=== PATIENT | female | born 1940 | race Caucasian/White ===

== ENCOUNTER → 2018-02-13 14:30 | Outpatient (CLI) | payer MEDICARE, OTHER, SELFPAY ==
[2018-02-13 17:37] LABS: Color, Urine Yellow (Yellow); Glucose, Dipstick Normal (Normal); Ketone-Dipstick Negative (Negative); Leukocyte Esterase-Dipstick 100 /ul (Negative); Nitrite-Dipstick Negative (Negative); Occult Blood-Urine 10 /ul (Negative); Protein-Dipstick 30 mg/dl (Negative); Urine Bilirubin Dipstick Negative (Negative); Urine Clarity Clear (Clear); Urine Urobilinogen Normal (Normal)
[2018-02-13 17:52] LABS: Protein, Urine (Random) 31.6 mg/dL (<11.9); Protein:Creat Ratio 293 mg/g CRE (0-200)
[2018-02-13 17:56] LABS: Absolute Neutrophil Count 3.4 X10^3/uL (2.0-7.7); Basophil# 0.02 X10^3/uL; Basophil% 0.4 % (0-1); Eosinophil# 0.12 X10^3/uL; Eosinophils% 2.4 % (0-5); Hemoglobin 13.3 g/dl (12.0-15.0); Lymphocyte % 21.7 % (19-41); Mean Corp Hgb Conc 33.3 g/gl (32-36); Mean Corpuscular Hgb 27.5 pg (27.0-32.0); Mean Corpuscular Volume 82.6 fL (81-99); Mean Platelet Vol. 10.6 fl (6.2-12.0); Monocyte% 7.9 % (0-10); Neutrophil # 3.41 X10^3/uL (2.7-7.7); Neutrophil % 67.4 % (47-70); Platelet Count 281 K/mm3 (150-450); RBC Distribution Width CV 14.5 % (11.6-14.6); RBC Distribution Width SD 43.5 fl (35.1-43.9); Red Blood Count 4.84 M/mm3 (4.2-5.4); White Blood Count 5.1 K/mm3 (4.4-11.0)
[2018-02-13 17:57] LABS: POSITIVE COUNT NO; POSITIVE DIFFERENTIAL NO; POSITIVE MORPHOLOGY NO
[2018-02-13 18:10] LABS: ALB/GLOB Ratio 0.9 RATIO (0.9-2.4); AST(SGOT) 18 U/L (15-37); Alanine Aminotransfer ALT/SGPT 21 U/L (13-56); Alkaline Phosphatase 111 U/L (45-117); Anion Gap 14 (5-15); BUN 21 mg/dL (7-18); BUN/Creat Ratio 19.4 RATIO (10-20); Calcium,Total 11.3 mg/dL (8.5-10.1); Chloride 106 mmol/L (98-107); Creatinine, Serum 1.08 mg/dL (0.55-1.02); EST Glomerular Filtration Rate 52 mL/min (>60); Est Glom Filt Rate - Afr Amer 63 mL/min (>60); Globulin 4.4 g/dL (2.2-4.2); Glucose 146 mg/dL (74-106); Potassium 3.6 mmol/L (3.5-5.1); Protein, Total 8.4 g/dL (6.4-8.2); Sodium Level 142 mmol/L (136-145)
[2018-02-15 14:07] LABS: Anti-Centromere B Ab <0.2 AI (0.0-0.9); Anti-Jo <0.2 AI (0.0-0.9); Anti-Scleroderma-70 AB <0.2 AI (0.0-0.9); RNP Ab <0.2 AI (0.0-0.9); SJOGREN'S Anti-SS-A test < 0.2 AI (0.0-0.9); SJOGREN'S Anti-SS-B test < 0.2 AI (0.0-0.9); Smith Ab <0.2 AI (0.0-0.9)
[2018-02-16 11:44] LABS: ANTINUCLEAR ANTIBODIES DIRECT Negative (Negative); Anti-dsDNA Ab 2 IU/mL (0-9)
[2018-02-20 20:07] LABS: Complement C3 178 mg/dL (82-167)
[2018-02-21 11:32] LABS: CCP IgG Antibodies > 250 units (0-19); HEPATITIS B SURFACE AG Negative (Negative); HLA B27 Negative (.); Hep B Surface Antibodies Non Reactive (.); Hep C Antibodies <0.1 s/co ratio (0.0-0.9)
== END ==
PROVIDERS: Family Provider Internal Medicine Infectious Disease; PCP Internal Medicine Infectious Disease; Visit Provider Internal Medicine Rheumatology
DX: M06.4 Inflammatory polyarthropathy (principal); R76.8 Other specified abnormal immunological findings in serum; E11.9 Type 2 diabetes mellitus without complications; I10 Essential (primary) hypertension; N20.0 Calculus of kidney; E78.5 Hyperlipidemia, unspecified
CPT/HCPCS: 36415; 72170; 73030; 80053; 81002; 81374; 82570; 84156; 85025; 86038; 86160; 86200; 86225; 86235; 86431; 86706; 86803; 87340

== ENCOUNTER → 2019-06-17 09:10 | Outpatient (CLI) | payer MEDICARE, OTHER, SELFPAY ==
--- NOTE | 2019-06-17 09:32 | MRI_ITS ---
STUDY: MR CHOLANGIOPANCREATOGRAPHY (MRCP) REASON FOR EXAM: Female, 78 years old. abd pain, dilated cbd TECHNIQUE: Standard MRCP technique was utilized. COMPARISON: Ultrasound 05/20/2019 FINDINGS: Gall Bladder: Normal with no distention or demonstrated fixed intraluminal filling defect. Cystic duct: Normal with no demonstrated fixed filling defect. Intrahepatic ducts: Normal visualized intrahepatic ducts with no demonstrated fixed filling defect, dilation or stricture. Common hepatic duct: Normal with no demonstrated fixed filling defect, dilation or stricture. Common bile duct: Normal with no demonstrated fixed filling defect, dilation or stricture. Pancreatic duct: Normal with no demonstrated fixed filling defect, dilation or stricture. MRI/MRCP Abdomen without Contrast IMPRESSION: Normal MR Cholangiopancreatography (MRCP). Electronically Signed: Dillon Jane MD at 14:08 EST Tel , Service support ,
== END ==
PROVIDERS: Family Provider Internal Medicine; PCP Internal Medicine; Referring Provider Internal Medicine Gastroenterology; Visit Provider Internal Medicine Gastroenterology
DX: K82.8 Other specified diseases of gallbladder (principal); R10.9 Unspecified abdominal pain
CPT/HCPCS: 74181

== ENCOUNTER → 2019-07-03 14:53 | Outpatient (CLI) | payer MEDICARE, OTHER, SELFPAY ==
[2019-07-03 17:34] LABS: Absolute Lymphocyte Count 1.28 X10^3/uL (0.83-4.51); Absolute Neutrophil Count 3.9 X10^3/uL (2.0-7.7); Basophil# 0.03 X10^3/uL; Basophil% 0.5 % (0-1); Eosinophil# 0.11 X10^3/uL; Eosinophils% 1.9 % (0-5); Hematocrit 45.2 % (37-47); Hemoglobin 14.2 g/dL (12.0-15.0); Lymphocyte # 1.28 X10^3/ul (4.0); Lymphocyte % 21.5 % (19-41); Mean Corp Hgb Conc 31.4 g/dL (32-36); Mean Corpuscular Hgb 27.3 pg (27.0-32.0); Mean Corpuscular Volume 86.8 fL (81-99); Mean Platelet Vol. 10.5 fl (6.2-12.0); Monocyte# 0.65 X10^3/uL; Monocyte% 10.9 % (0-10); NRBC Flagged by Analyzer 0 % (0-5); Neutrophil # 3.86 X10^3/uL (2.7-7.7); Platelet Count 261 K/mm3 (150-450); RBC Distribution Width CV 14.3 % (11.6-14.6); RBC Distribution Width SD 45.6 fl (35.1-43.9); Red Blood Count 5.21 M/mm3 (4.2-5.4); White Blood Count 5.9 K/mm3 (4.4-11.0)
[2019-07-03 17:54] LABS: AST(SGOT) 17 U/L (15-37); Alanine Aminotransfer ALT/SGPT 26 U/L (13-56); Alkaline Phosphatase 150 U/L (45-117); Anion Gap 5 (5-15); BUN 22 mg/dL (7-18); Calcium,Total 10.5 mg/dL (8.5-10.1); Chloride 110 mmol/L (98-107); EST Glomerular Filtration Rate 57 mL/min (>60); Est Glom Filt Rate - Afr Amer 69 mL/min (>60); Globulin 4.1 g/dL (2.2-4.2); Glucose 94 mg/dL (74-106); Potassium 3.8 mmol/L (3.5-5.1); Protein, Total 8.1 g/dL (6.4-8.2); Sodium Level 140 mmol/L (136-145)
== END ==
PROVIDERS: PCP Internal Medicine; Referring Provider Internal Medicine Rheumatology; Visit Provider Internal Medicine Rheumatology
DX: I10 Essential (primary) hypertension (principal); E11.9 Type 2 diabetes mellitus without complications; N20.0 Calculus of kidney; E78.5 Hyperlipidemia, unspecified; E21.3 Hyperparathyroidism, unspecified; M05.79 Rheumatoid arthritis with rheumatoid factor of multiple sites without organ or systems involvement; Z79.899 Other long term (current) drug therapy
CPT/HCPCS: 36415; 80053; 85025

== ENCOUNTER → 2020-09-09 14:11 | Outpatient (CLI) | payer MEDICARE, OTHER, SELFPAY ==
--- NOTE | 2020-09-09 14:15 | BI_ITS ---
MAMMOGRAPHY - BILATERAL DIAGNOSTIC REASON FOR EXAM: Female, 79 years old. Abnormality of the right breast visualized on a CT scan. PERTINENT HISTORY: Non-contributory. TECHNIQUE: Digital bilateral breast zulay (3D mammographic acquisition) in the CC and MLO projections. 2-D mediolateral oblique (MLO) and craniocaudad (CC) views of both breasts were obtained. CAD: Full Field Digital Mammography with Computer Added Detection was performed. COMPARISON: Comparison is made with prior examination dated 08/01/2013. FINDINGS: Breast Composition: There are scattered areas of fibroglandular density. There is evidence of a 2.1 cm x 1.5 cm densely calcified nodule in the upper lateral portion of the right breast. A densely calcified nodule measuring 8.6 mm x 9 mm in the retroareolar region of the right breast is seen as well. 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 2 small calcified nodules are also seen in the central portion of the left breast. No other significant abnormalities are identified. There has been no significant change since the prior study. BI/DIAG MAMM W/CAD, BILAT IMPRESSION: Stable bilateral diagnostic mammogram. One year follow-up recommended. (A) ASSESSMENT CATEGORY: BIRADS Category 2: Benign. A letter regarding these results will be sent to the patient by the facility within 30 days. Approximately 10% of breast cancers are not detected by mammography. A normal mammogram should not delay biopsy of a clinically suspicious abnormality. Electronically Signed: Manish Holguin MD at 15:38 EDT , Service support ,
== END ==
PROVIDERS: PCP Internal Medicine; Referring Provider Internal Medicine; Visit Provider Internal Medicine
DX: N64.9 Disorder of breast, unspecified (principal)
CPT/HCPCS: 77062; 77066; G0279

== ENCOUNTER → 2021-02-24 11:33 | Outpatient (CLI) | payer MEDICARE, OTHER, SELFPAY ==
[2021-02-25 12:15] LABS: PTHIN 190.2 pg/mL (18.4-80.1)
== END ==
PROVIDERS: PCP Internal Medicine; Referring Provider Internal Medicine Rheumatology; Visit Provider Internal Medicine Rheumatology
DX: M05.70 Rheumatoid arthritis with rheumatoid factor of unspecified site without organ or systems involvement (principal); M19.041 Primary osteoarthritis, right hand; E11.9 Type 2 diabetes mellitus without complications; I10 Essential (primary) hypertension; N20.0 Calculus of kidney; E78.5 Hyperlipidemia, unspecified; E21.3 Hyperparathyroidism, unspecified; D18.09 Hemangioma of other sites; N26.1 Atrophy of kidney (terminal); Z79.899 Other long term (current) drug therapy
CPT/HCPCS: 36415; 83970

== ENCOUNTER → 2022-05-10 | Outpatient (CLI) | payer MEDICARE, OTHER, SELFPAY ==
--- NOTE | 2022-05-09 16:25 | FLU_PTH ---
PATIENT: AZUCENA VIZCAINO LOC: [facility] U#:[id number] AGE/SX: 81/F ROOM: RE05/10/[address]: Dr. Juan David Choi MD : 1940 BED: DIS: 05/10/2022 SPEC #: [id number] RECD: 05/10/22 16:45 STATUS: YUMIKO TANISHA #: [id number] TEA: 05/09/22 16:[address]: Juan David Choi DEPT: CYTOLOGY RECD BY: Latanya Maldonado ENTERED: 05/11/22 08:44 SP TYPE: Fluid OTHR DR: Dr. Judit Harris MD Tissues: A - Thyroid gland, NOS B - Thyroid gland, NOS Procedures: Special Stain Group II Surgery Specimen Level IV Cytospin Fluid Cytology Other HEADER OPERATION: Right thyroid biopsy PRE-OP DIAGNOSIS: Multiple thyroid nodules x2 TISSUE SUBMITTED: A ? Right mid thyroid tissue fluid, B - Right inferior thyroid tissue fluid, C ? Thyroid nodules x2, x8 slides DIAGNOSIS CYTOLOGY A. Fine needle aspiration, right mid thyroid nodule (cytospin and cell block): Negative for malignant cells. See comment. B. Fine needle aspiration, right inferior thyroid nodule (cytospin and cell block): Negative for malignant cells. See comment. C. Fine needle aspiration, thyroid nodules (smears): Negative for malignant cells. See comment. AM:praveen 05/12/2022 COMMENT A. Benign follicular cells are present in the specimen. B. The specimen primarily contains blood. C. Rare follicular cells are identified. The specimen is insufficient for further evaluation due to paucity of follicular cells. CYTOLOGY STUDY Slides are reviewed. CYTOLOGY GROSS A - Received is 50 ml of red cloudy fluid labeled with the patient's name and and designated per the requisition as right mid thyroid tissue fluid. Submitted for cytology preparation including cell block. B - Received is 60 ml of red cloudy fluid labeled with the patient's name and and designated per the requisition as right inferior thyroid tissue fluid. Submitted for cytology preparation including cell block. C - Received are eight smears labeled with the patient's name and designated per the requisition as thyroid nodules x2. Submitted for staining. / praveen 05/11/2022 TC:5 CPT: 10256 x3, 28123
== END | disposition home or self-care (01) ==
LOC: LABSPEC 16:53
PROVIDERS: PCP Internal Medicine; Visit Provider Surgery
DX: E04.2 Nontoxic multinodular goiter (principal)
CPT/HCPCS: 88108; 88161; 88305; 88313

== ENCOUNTER → 2022-06-17 | Outpatient (CLI) | payer MEDICARE, OTHER, SELFPAY ==
--- NOTE | 2022-06-17 09:21 | NM_ITS ---
CLINICAL: 81-year-old female with history of clinical hyperparathyroidism. 99m Tc SESTAMIBI DUAL PHASE PLANAR and SPECT PARATHYROID SCINTIGRAPHY COMPARISON: None available FINDINGS: Following the intravenous administration of 26.0 mCi of 99m Tc sestamibi, planar image acquisitions of the anterior neck at 15 minutes and 3.0 hours post radiopharmaceutical provision and SPECT reconstructions obtained at 3.0 hours reveal: 1. Immediate static blood pool acquisitions demonstrate distribution of the radiopharmaceutical in the right-left thyroid colloid with focal visualization of the thyroid isthmus. 2. Delayed planar images depict symmetric incomplete washout of the radiotracer from the prior defined left and right lobe thyroid colloid and region of the thyroid isthmus.. Emission computed tomographic reconstructions of the anterior neck reveal confirmation of the planar projection findings. NM/Parathyroid SPECT w/ CONCUR CT IMPRESSION: 1. NEGATIVE 99m Tc SESTAMIBI PLANAR-SPECT PARATHYROID IMAGING DUAL PHASE EXAMINATION. 2. There is no scintigraphic evidence of parathyroid adenoma on the current evaluation. 3. Incomplete-delayed washout of the radiopharmaceutical from the entire functioning thyroid colloid may be secondary to multinodular goiter, chronic lymphocytic thyroiditis. (Farr, Radiographics 19: 601, 1999). Electronically Signed: Dillon Goncalves, at 11:03 EST ,
== END | disposition home or self-care (01) ==
LOC: NM 09:20
PROVIDERS: PCP Internal Medicine; Visit Provider Surgery
DX: E21.3 Hyperparathyroidism, unspecified (principal)
CPT/HCPCS: 78072; A9500

== ENCOUNTER → 2022-07-22 | Outpatient (CLI) | payer MEDICARE, OTHER, SELFPAY ==
--- NOTE | 2022-07-22 13:15 | FLU_PTH ---
PATIENT: AZUCENA VIZCAINO LOC: [facility] U#:[id number] AGE/SX: 81/F ROOM: RE07/22/[address]: Dr. Juan David Choi MD : 1940 BED: DIS: 07/22/2022 SPEC #: [id number] RECD: 07/22/22 14:25 STATUS: YUMIKO TANISHA #: [id number] TEA: 07/22/22 13:[address]: Juan David Choi DEPT: CYTOLOGY RECD BY: Latanya Maldonado ENTERED: 07/25/22 11:13 SP TYPE: Fluid OTHR DR: Dr. Judit Harris MD Tissues: A - Thyroid gland, NOS B - Thyroid gland, NOS C - Thyroid gland, NOS D - Thyroid gland, NOS Procedures: Special Stain Group II Surgery Specimen Level IV Cytospin Fluid Cytology Other HEADER OPERATION: Fine needle aspiration right mid and right inferior thyroid nodules PRE-OP DIAGNOSIS: Multiple thyroid nodules TISSUE SUBMITTED: A ? Right mid thyroid nodule fluid, B - Right mid thyroid nodule x4 slides, C - Right inferior thyroid nodule fluid, D - Right inferior thyroid nodule x4 slides DIAGNOSIS CYTOLOGY A. Right mid thyroid nodule, fine needle aspiration (cytospin and cell block): Negative for malignant cells. See comment. B. Right mid thyroid nodule, fine needle aspiration (smears): Negative for malignant cells. See comment. C. Right inferior thyroid nodule, fine needle aspiration (cytospin and cell block): Negative for malignant cells. See comment. D. Right inferior thyroid nodule, fine needle aspiration (smears): Adequate for evaluation. Benign, consistent with benign follicular nodule ([place] Category II). See comment. AM:praveen 07/26/2022 COMMENT A. The specimen contains rare benign follicular cells. B. Rare follicular cells are present. The specimen precludes further evaluation. Clinical correlation is necessary. C. Rare follicular cells are present. D. The [place] System for thyroid diagnostic categorization was used in the evaluation of this case. The specimen is adequate for evaluation. Reference is made to the patient's previous find needle aspiration of thyroid ([id number]) with similar findings. CYTOLOGY STUDY Slides are reviewed. CYTOLOGY GROSS A - Received is 20 ml of red cloudy fluid labeled with the patient's name and and designated per the requisition as right mid thyroid nodule. Submitted for cytology preparation including cell block. B - Received are four smears labeled with the patient's name and designated per the requisition as right mid thyroid nodule. Submitted for staining. C - Received is 40 ml of red cloudy fluid labeled with the patient's name and and designated per the requisition as right inferior thyroid nodule. Submitted for cytology preparation including cell block. D - Received are four smears labeled with the patient's name and designated per the requisition as right inferior thyroid nodule. Submitted for staining. / praveen 07/25/2022 TC:5 CPT: 80530 x4, 49916 x2
[2022-07-25 10:31] LABS: PTHIN 137.8 pg/mL (18.4-80.1)
== END | disposition home or self-care (01) ==
PROVIDERS: PCP Internal Medicine; Referring Provider Surgery; Visit Provider Surgery
DX: E04.2 Nontoxic multinodular goiter (principal)
CPT/HCPCS: 83970; 88108; 88161; 88305; 88313

== ENCOUNTER → 2023-06-14 | Outpatient (CLI) | payer MEDICARE, OTHER, SELFPAY ==
[2023-06-14 17:34] LABS: Absolute Lymphocyte Count 0.57 X10^3/uL (0.83-4.51); Absolute Neutrophil Count 3.9 X10^3/uL (2.0-7.7); Basophil# 0.03 X10^3/uL; Basophil% 0.6 % (0-1); Eosinophil# 0.14 X10^3/uL; Eosinophils% 2.7 % (0-5); Hematocrit 42.5 % (37-47); Hemoglobin 13.2 g/dL (12.0-15.0); Lymphocyte # 0.57 X10^3/ul (0.83-4.51); Lymphocyte % 10.9 % (19-41); Mean Corp Hgb Conc 31.1 g/dL (32-36); Mean Corpuscular Hgb 28.4 pg (27.0-32.0); Mean Corpuscular Volume 91.6 fL (81-99); Mean Platelet Vol. 10.7 fl (6.2-12.0); Monocyte% 11.5 % (0-10); NRBC Flagged by Analyzer 0 % (0-5); Neutrophil # 3.89 X10^3/uL (2.7-7.7); Neutrophil % 74.1 % (47-70); POSITIVE DIFFERENTIAL YES; Platelet Count 209 K/mm3 (150-450); RBC Distribution Width CV 13.9 % (11.6-14.6); Red Blood Count 4.64 M/mm3 (4.2-5.4); White Blood Count 5.2 K/mm3 (4.4-11.0)
[2023-06-14 17:40] LABS: Differential Indicated SCAN CRITERIA MET
[2023-06-14 17:55] LABS: Differential Comment SCANNED
[2023-06-14 18:22] LABS: ALB/GLOB Ratio 1.1 RATIO (0.9-2.4); AST(SGOT) 20 U/L (15-37); Alanine Aminotransfer ALT/SGPT 21 U/L (13-56); Albumin, Serum 3.8 g/dL (3.2-5.0); Alkaline Phosphatase 107 U/L (45-117); Anion Gap 7 (5-15); BUN 28 mg/dL (7-18); Calcium,Total 10.7 mg/dL (8.5-10.1); Chloride 108 mmol/L (98-107); Creatinine, Serum 1.12 mg/dL (0.55-1.02); EST Glomerular Filtration Rate 49 mL/min (>60); Est Glom Filt Rate - Afr Amer 60 mL/min (>60); Globulin 3.6 g/dL (2.2-4.2); Glucose 211 mg/dL (74-106); Potassium 4.2 mmol/L (3.5-5.1); Protein, Total 7.4 g/dL (6.4-8.2); Sodium Level 141 mmol/L (136-145)
== END | disposition home or self-care (01) ==
PROVIDERS: PCP Internal Medicine; Referring Provider Internal Medicine Rheumatology; Visit Provider Internal Medicine Rheumatology
DX: M05.70 Rheumatoid arthritis with rheumatoid factor of unspecified site without organ or systems involvement (principal); Z79.899 Other long term (current) drug therapy
CPT/HCPCS: 36415; 80053; 85025

== ENCOUNTER → 2023-08-21 | Outpatient (CLI) | payer MEDICARE, OTHER, SELFPAY ==
--- NOTE | 2023-08-21 09:53 | NM_ITS ---
CLINICAL: 81-year-old female with history of apparent clinical hyperparathyroidism. 99m Tc SESTAMIBI DUAL PHASE PARATHYROID SCINTIGRAPHY COMPARISON: Previous technetium sestamibi parathyroid scintigraphy examination dated 06/17/2022 FINDINGS: Following the intravenous administration of 28 mCi of 99m Tc sestamibi, image acquisitions of the anterior neck at approximately 15 minutes and 3.0 hours post radiopharmaceutical provision reveal: 1. Immediate static blood pool acquisitions demonstrate unchanged heterogeneous radiopharmaceutical concentration defined in the right-left thyroid colloid of a U-shaped thyroid gland. 2. Delayed images depict relatively unchanged distribution of the radiotracer in the right-left thyroid bed when compared to the initial acquisitions. NM/Parathyroid Scan IMPRESSION: 1. Incomplete-delayed washout of the radiopharmaceutical from the entire functioning thyroid colloid may be secondary to multinodular goiter, chronic lymphocytic thyroiditis. (Farr, Radiographics 19: 601, 1998). 2. Overall compared to the previous examination dated 06/17/2022, there is minimal interval change. Electronically Signed: Dillon Goncalves DO at 9:30 EDT ,
== END | disposition home or self-care (01) ==
LOC: NM 09:51
PROVIDERS: PCP Internal Medicine; Referring Provider Internal Medicine Endocrinology, Diabetes & Metabolism; Visit Provider Internal Medicine Endocrinology, Diabetes & Metabolism
DX: E21.3 Hyperparathyroidism, unspecified (principal)
CPT/HCPCS: 78070; A9500

== ENCOUNTER → 2025-06-04 | Outpatient (CLI) | payer MEDICARE, SELFPAY ==
--- NOTE | 2025-06-04 12:59 | VDLE_ITS ---
Reason For Study Reason For Study: Localized edema RIGHT LEFT GSV is normal. GSV is normal. CFV is compressible, spontaneous, phasic, competent CFV is compressible, spontaneous, phasic, competent, and demonstrates normal augmentation. and demonstrates normal augmentation. FV is compressible, spontaneous, phasic, competent FV is compressible, spontaneous, phasic, competent and demonstrates normal augmentation. and demonstrates normal augmentation. POP V is compressible, spontaneous, phasic, competent POP V is compressible, phasic, and INCOMPETENT for and demonstrates normal augmentation. greater than 1.0 second. T/P Trunk is compressible. T/P Trunk is compressible. PTV is compressible. PTV is compressible. RT PerV is compressible. LT PerV is compressible. Procedure This is a venous duplex using B-mode, color flow and spectral Doppler. Exam performed in department. A preliminary report was called and/or faxed to [facility]. VL/Venous Duplex US - José Miguel Extrem Interpretation Summary Deep veins of the bilateral lower extremities are patent and compressible segme ntally. There is no evidence of bilateral lower extremity deep vein thrombosis. The bilateral great saphenous veins appea r patent and compressible segmentally. Reflux noted, left popliteal vein. Ordering Physician: Natasha Cat Referring Physician: Natasha Cat Performed By: Glenis Jack RVT
== END | disposition home or self-care (01) ==
LOC: CVS 12:50
DX: R60.0 Localized edema (principal)
CPT/HCPCS: 93970